=== PATIENT | female | born 1975 | race Caucasian/White ===

== ENCOUNTER 2018-10-26 12:42 | Emergency (ER) | payer OTHER ==
--- NOTE | 2018-10-26 12:46 | PDOC ---
History of Present Illness <Mohit Kumari - Last Filed: 10/26/18 15:01> - General History Source: Patient Exam Limitations: No Limitations <Mohamud Miranda - Last Filed: 10/26/18 15:12> - General Chief Complaint: Chest Pain Stated Complaint: CHEST PAIN Time Seen by Provider: 10/26/18 12:46 - History of Present Illness Initial Comments: 43 yo F w a pmh of HTN, and eczema presentsafter she experienced Substernal chest discomfort and pain with occasional radiation to the left shoulder. The chest pain does not radiate to the jaw or back. She is currently not experiencing the chest pain and is only experiencing Left shoulder discomfort. When she experiences the chest pain she rates it as 6/10 in intensity and describes it as a stabbing sensation. It comes on at rest and the last time it came on was this morning when she woke up. She states that she also felt nauseous when the chest discomfort came on but did not experience any emesis. She also states that it was associated with a slight cold sweat. The chest pain is not brought about by physical activity or exertion. It comes on most often at rest. She does admit to being more out of breath and fatigued recently and has been generally tired for the past month. This morning her episode of chest discomfort was also associated with shortness of breath and difficulty breathing. She is not currently experiencing any SOB or difficulty breathing. She admits that 10 days prior she had a URI and was diagnosed with bronchitis and given a Z pack. She finished her Z pack a few days ago. Patient denies any hemoptysis, unilateral leg swelling, history of PE/DVT, exogenous estrogen usage, surgery or trauma within the past 4 weeks that required hospitalization and/or intubation. She denies having a headache, blurry vision, neck pain, weakness, numbness, tingling, chills, back pain, dysuria, frequency, urgency, or other joint pain. PCP: Henri Riddle Energy Efficiency Engineer: Kirstin Ren PSH: R breast cyst removal Allergies: Shellfish, NKDA Social Hx: Former smoker. Smoked 2,3 cigarettes a day for 20 years. Quit September 2017 (Mohamud Miranda) Past History <QuocMohit - Last Filed: 10/26/18 15:01> <Mohamud Miranda - Last Filed: 10/26/18 15:12> - Past Medical History Allergies/Adverse Reactions: Allergies Allergy/AdvReac Type Severity Reaction Status Date / Time shellfish derived Allergy Verified 10/26/18 12:43 Home Medications: Ambulatory Orders EPINEPHrine (EPI-PEN 0.3MG) [Epipen 0.3MG -] 0.3 mg IM ASDIR PRN 10/26/18 Hydrochlorothiazide [Hctz -] 12.5 mg PO DAILY 10/26/18 Review of Systems <QuocMohit - Last Filed: 10/26/18 15:01> - Review of Systems Able to Perform ROS?: Yes <Mohamud Miranda - Last Filed: 10/26/18 15:12> - Review of Systems Comments:: CONSTITUTIONAL: Present: Fatigue Absent: fever, no chills, no fatigue EYES: Absent: visual changes ENT: Absent: ear pain, no sore throat CARDIOVASCULAR: Present: Chest pain Absent: no palpitations RESPIRATORY: Present: SOB, difficulty breathing. Absent: cough GI: Present: Nausea Absent: abdominal pain, no vomiting, no constipation, no diarrhea GENITOURINARY: Absent: dysuria, no frequency, no hematuria MUSKULOSKELETAL: Absent: back pain, no arthralgia, no myalgia SKIN: Absent: rash NEURO: Absent: headache (Mohamud Miranda) *Physical Exam <Mohit Kumari - Last Filed: 10/26/18 15:01> <Mohamud Miranda - Last Filed: 10/26/18 15:12> - Vital Signs Last Vital Signs Temp Pulse Resp BP Pulse Ox 98.4 F 73 16 129/84 99 10/26/18 12:42 10/26/18 14:51 10/26/18 14:51 10/26/18 14:51 10/26/18 14:51 - Physical Exam Comments: GENERAL: Well-appearing, well-nourished. No apparent distress. HEENT: Normocephalic, atraumatic. PERRL, EOM intact. CARDIOVASCULAR: Normal S1, S2. Regular rate and rhythm. PULMONARY: Clear to auscultation bilaterally. ABDOMEN: Soft, non-distended, non-tender. EXTREMITIES: Normal ROM in all four extremities. No gross deformities. SKIN: Warm, dry. No rash NEUROLOGICAL: No focal neurological deficits. (Mohamud Miranda) Heart Score/ECG Review - History History: Slightly suspicious - Electrocardiogram EKG: Normal - Age Age: </= 45 - Risk Factors Risk Factors Heart Score: Yes Hx Hypertension, Yes Smoking History, Yes Hx Obesity Based on the list above the patient has:: >/=3 risk factors or Hx atherosclerotic disease - Troponin Troponin: </= normal limit - Score Heart Score - Total: 2 - ECG Intrepretation Rhythm: Regular Rhythm - Davin Davin: Left Davin Deviation - P and KS Delta Wave(s) Present: No WPW: No - ST and T Non Specific ST-T Wave changes: No - ECG Impressions Normal ECG: Yes Non-specific ST Elevation: No Ischemic Changes: No <Mohamud Miranda - Last Filed: 10/26/18 15:12> - Procedure Monitoring Vital Signs: Procedure Monitoring Vital Signs Temperature 98.4 F 10/26/18 12:42 Pulse Rate 73 10/26/18 14:51 Respiratory Rate 16 10/26/18 14:51 Blood Pressure 129/84 10/26/18 14:51 O2 Sat by Pulse Oximetry (%) 99 10/26/18 14:51 ED Treatment Course - LABORATORY CBC & Chemistry Diagram: 10/26/18 13:20 10/26/18 13:20 <Mohit Kumari - Last Filed: 10/26/18 15:01> - LABORATORY CBC & Chemistry Diagram: 10/26/18 13:20 10/26/18 13:20 <Mohamud Miranda - Last Filed: 10/26/18 15:12> - ADDITIONAL ORDERS Additional order review: Laboratory Results 10/26/18 10/26/18 10/26/18 13:20 13:20 12:56 Sodium 132 L Potassium 3.8 Chloride 100 Carbon Dioxide 25 Anion Gap 7 L BUN 13 Creatinine 0.7 Creat Clearance w eGFR > 60 Random Glucose 128 H Calcium 9.0 Total Bilirubin 0.2 AST 23 ALT 20 Alkaline Phosphatase 79 Troponin I < 0.03 Total Protein 7.2 Albumin 4.0 Urine HCG, Qual Negative 10/26/18 13:20 RBC 4.43 MCV 91.4 MCHC 32.5 RDW 12.3 MPV 8.6 Neutrophils % 59.5 Lymphocytes % 31.5 Monocytes % 6.9 Eosinophils % 1.8 Basophils % 0.3 - RADIOLOGY Radiology Studies Ordered: Category Date Time Status CHEST PA & LAT [RAD] Stat Radiology 10/26/18 13:28 Completed Medical Decision Making <Mohit Kumari - Last Filed: 10/26/18 15:01> <Mohamud Miranda - Last Filed: 10/26/18 15:12> - Medical Decision Making 43 yo F w a pmh of HTN, and eczema presents after she experienced Substernal chest discomfort and pain with occasional radiation to the left shoulder. + nausea, smoking history, HTN. HEART score 2/3. DDx IBNLT: ACS/IA, PNA, pneumothorax, Costochondritis, MSK chest pain, Arrhythmia, PE, thyroid abnormality. Plan: Cbc, Cmp, Trop, TSH, HCG, EKG, CXR, re-assess. Low risk for PE bc patient can be PERCed out. Labs unremarkable. Trop negative. CXR clean. EKG normal sinus. This chest pain is likely MSK in nature - Possibly costochondritis as a result of her recent bronchitis infection. (Mohamud Miranda) *DC/Admit/Observation/Transfer <Mohit Kumari - Last Filed: 10/26/18 15:01> - Discharge Dispostion Decision to Admit order: No <Mohamud Miranda - Last Filed: 10/26/18 15:12> Diagnosis at time of Disposition: Chest pain - Discharge Dispostion Disposition: HOME Condition at time of disposition: Stable - Referrals Referrals: Venkatesh Álvarez [Primary Care Provider] - - Patient Instructions Printed Discharge Instructions: DI for Atypical Chest Pain, DI for Chest Pain, DI for Musculoskeletal Pain Additional Instructions: You came into the ER with chest pain. We looked at your blood and found no abnormalities. We also did a chest x-ray, and an electrocardiogram and found no abnormalities. You did not have a heart attack. We believe the cause of your chest pain is musculoskeletal in nature. Please see attached handout for further explanation. It is very important for you to call your primary care doctor in the next 24 hours and schedule an appointment for follow up so your condition can be monitored. Come back to the ER immediately if your pain worsens, you start feeling nauseous , have shortness of breath or difficulty breathing or have any other new or worsening concerns. Thank you for coming to the [facility]. We hope you feel better soon! Print Language: THAI - Post Discharge Activity
[2018-10-26 12:50] VITALS: TEMP 98.4; BMI 31.1
[2018-10-26 13:43] LABS: BASO % 0.3 % (0-2.0); EOS % 1.8 % (0-4.5); HEMATOCRIT 40.4 % (32.4-45.2); HEMOGLOBIN 13.2 GM/dl (10.7-15.3); LYMPH % 31.5 % (8-40); MCH 29.7 pg (25.7-33.7); MCHC 32.5 g/dl (32.0-36.0); MEAN CELL VOLUME 91.4 fl (80-96); MEAN PLT VOLUME 8.6 fl (7.5-11.1); MONO % 6.9 % (3.8-10.2); NEUT % 59.5 % (42.8-82.8); PLATELET COUNT 241 K/MM3 (134-434); RBC 4.43 M/mm3 (3.60-5.2); RDW 12.3 % (11.6-15.6); WHITE BLOOD COUNT 9.5 K/mm3 (4.0-10.8)
[2018-10-26 13:51] LABS: ALK PHOS 79 U/L (32-92); ANION GAP 7 MMOL/L (8-16); BILIRUBIN,TOTAL 0.2 mg/dl (0.2-1.0); BLOOD UREA NITROGEN 13 mg/dl (7-18); CHLORIDE 100 mmol/L (98-107); CO2 25 mmol/L (22-28); CREATININE 0.7 mg/dl (0.6-1.3); GLUCOSE,RANDOM 128 mg/dl (74-106); POTASSIUM 3.8 mmol/L (3.5-5.1); SGOT/AST 23 U/L (10-42); SGPT/ALT 20 U/L (10-40); SODIUM 132 mmol/L (136-145); TOT PROT 7.2 g/dl (6.4-8.3)
[2018-10-26 14:52] VITALS: BP 129/84; PULSE 73
--- NOTE | 2018-10-26 15:06 | PDOC ---
Attending Attestation - Resident Resident Name: Mohamud Miranda - ED Attending Attestation I have performed the following: I have examined & evaluated the patient, The case was reviewed & discussed with the resident, I agree w/resident's findings & plan, Exceptions are as noted - HPI HPI: 10/26/18 15:03 43 result past medical history significant for hypertension presents emergency Department with episode of substernal chest discomfort occurring upon awakening this morning. Slight radiation to left shoulder no jaw or back discomfort symptoms described as a 6 out of 10 stabbing sensation relieved with time. Mildly short of breath which patient has had for quite arrival to the emergency department all symptoms have resolved. No hemoptysis leg swelling history PE DVT surgery trauma no travel. ROS: A complete review of 10 out of 10 review of systems is taken and is negative apart from what is previously mentioned below and in the HPI. - Physicial Exam PE: 10/26/18 15:03 Vitals: Triage Vital signs reviewed General Appearance: no acute distress, well nourished well developed, Head: Atraumatic, Eyes: Pupils equal reactive round, extraocular movement intact Neck: Supple;No Nucal rigidity Chest Wall: Nontender Cardiac: Regular rate and rhythym, no murmurs, no rubs, no gallops, Lungs: Clear to auscultation bilateral, good air movement bilaterally, Abdomen: Soft, non distended, normal bowel sounds, non tender to palpation Extremities: Full range of motion to all extremities, no cyanosis, clubbing, or edema Skin: Warm and dry, no rashes or lesions, no rash, no petechiae Psych: normal mood, normal affect - Medical Decision Making 10/26/18 15:04 Well-appearing no apparent distress currently asymptomatic chest pain approximately 6 hours ago Heart score 2 negative for PE by PERC criteria Troponin negative History examination consistent with atypical chest pain Patient strict return to the emergency department for any severe returning symptoms otherwise she'll follow-up with her primary care provider this week. Findings, need follow-up and strict return instructions discussed with patient. Heart Score/ECG Review - History History: Slightly suspicious - Electrocardiogram EKG: Normal - Age Age: 45-65 - Risk Factors Risk Factors Heart Score: Yes Hx Hypercholesterolemia Based on the list above the patient has:: 1-2 risk factors - Troponin Troponin: </= normal limit (EKG performed at 1247 demonstrates normal sinus rhythm no cell elevations or T-wave inversions. Interpreted by me.) - Score Heart Score - Total: 2 - ECG Impressions Comment:: 10/26/18 15:04 EKG performed at 1247 demonstrates normal sinus rhythm's no ST elevations or T- wave inversions Interpreted by me.
--- NOTE | 2018-10-27 10:00 | EKG ---
Test Reason : Blood Pressure : / mmHG Vent. Rate : 082 BPM Atrial Rate : 082 BPM P-R Int : 196 ms QRS Dur : 082 ms QT Int : 394 ms P-R-T Axes : 046 -20 -02 degrees QTc Int : 460 ms NORMAL SINUS RHYTHM NORMAL ECG NO PREVIOUS ECGS AVAILABLE Confirmed by BRENT HAYNES, RADHA ([id number]) on 10/27/2018 9:59:38 AM Referred By: DIALLO LEWIS Confirmed By:RADHA KENNEDY MD
== END 2018-10-26 15:15 | disposition home or self-care (01) ==
LOC: FER 12:42
DX: R07.9 Chest pain, unspecified (principal); I10 Essential (primary) hypertension; L30.9 Dermatitis, unspecified
CPT/HCPCS: 36415; 71046-TC-FY; 80053; 84443; 84484; 84703; 85025; 93005; 99285-25